=== PATIENT | male | born 2000 | race American Indian/Alaskan Native ===

== ENCOUNTER 2021-05-28 11:09 | Emergency (ER) | payer OTHER ==
[2021-05-28] MEDS ORDERED: LIDOCAINE (1%) 10 MG/1 ML VIAL 20 ML MDV INFILTRATI ONE (11:22)
[2021-05-28] MEDS ORDERED: oxyCODONE /ACETAMINOPHEN 5-325MG TAB PO ONE (11:35)
[2021-05-28] MEDS ORDERED: ONDANSETRON 4 MG ODT TAB PO ONE (11:36)
--- NOTE | 2021-05-28 12:08 | Emergency Department Report ---
ED General Adult HPI - General Chief complaint: Skin/Abscess/Foreign Body Stated complaint: BOIL Time Seen by Provider: 05/28/21 11:14 Source: patient Mode of arrival: Ambulatory Limitations: No Limitations - History of Present Illness Initial comments: 21-year-old -[place] male patient presents with complaints of right buttock abscess x1 week. He denies prior history of buttocks abscesses or pilonidal abscesses. He rates his current pain as a 10/10 in severity. He denies any fever/chills or sweats. No past medical history per patient. He has not tried any OTC medications for symptoms. Severity scale (0 -10): 10 - Related Data Previous Rx's Medication Instructions Recorded Last Taken Type Acetaminophen/Codeine [Tylenol 1 tab PO Q8H PRN #10 tab 05/28/21 Unknown Rx /Codeine # 3 tab] Clindamycin [Clindamycin CAP] 300 mg PO Q6H 10 Days #40 capsule 05/28/21 Unknown Rx Ibuprofen [Motrin] 800 mg PO Q8HR PRN #20 tablet 05/28/21 Unknown Rx Mupirocin [Bactroban 2% OINT] 1 applic TP TID 10 Days #1 tube 05/28/21 Unknown Rx Allergies Allergy/AdvReac Type Severity Reaction Status Date / Time No Known Allergies Allergy Unverified 05/28/21 11:10 ED Review of Systems ROS: Stated complaint: BOIL Other details as noted in HPI Constitutional: denies: chills, fever, malaise Gastrointestinal: denies: abdominal pain, nausea, vomiting Genitourinary: denies: other (No difficulty defecating per patient) Skin: lesions Neurological: denies: headache, numbness, paresthesias ED Past Medical Hx - Past Medical History Previous Medical History?: Yes Hx Asthma: Yes - Surgical History Past Surgical History?: No - Medications Home Medications: Home Medications Medication Instructions Recorded Confirmed Last Taken Type Acetaminophen/Codeine [Tylenol 1 tab PO Q8H PRN #10 tab 05/28/21 Unknown Rx /Codeine # 3 tab] Clindamycin [Clindamycin CAP] 300 mg PO Q6H 10 Days #40 capsule 05/28/21 Unknown Rx Ibuprofen [Motrin] 800 mg PO Q8HR PRN #20 tablet 05/28/21 Unknown Rx Mupirocin [Bactroban 2% OINT] 1 applic TP TID 10 Days #1 tube 05/28/21 Unknown Rx ED Physical Exam - General Limitations: No Limitations General appearance: alert, in no apparent distress - Head Head exam: Present: atraumatic, normocephalic - Eye Eye exam: Present: normal appearance. Absent: scleral icterus - Respiratory Respiratory exam: Absent: respiratory distress - Cardiovascular Cardiovascular Exam: Present: regular rate - Rectal Rectal exam: Present: other (Right lower inner buttock abscess noted (nonperianal) with surrounding induration and central fluctuance no significant tenderness to palpation noted) - Neurological Exam Neurological exam: Present: alert, oriented X3 - Psychiatric Psychiatric exam: Present: normal affect, normal mood - Skin Skin exam: Present: warm, dry, intact, erythema (Erythema noted about the right buttock abscess with mild cellulitic changes noted) ED Course Vital Signs 05/28/21 05/28/21 05/28/21 11:11 11:57 13:28 Temperature 99.6 F Pulse Rate 105 H 99 H Respiratory 18 17 Rate Blood Pressure 119/71 Blood Pressure 125/69 [Right] O2 Sat by Pulse 97 Oximetry - I & D Buttocks Type of Procedure: Simple Site: Right buttock Blade Size: 11 I & D Procedure: betadine prep, sterile drapes applied, sterile dressing applied Progress: 4 cc of lidocaine 1% used anesthetize area. Moderate purulent drainage obtained from wound. Wound irrigated with 100 Betadine and saline mixture. Sterile dressing applied. Patient tolerated procedure well without any immediate complications. ED Medical Decision Making - Medical Decision Making 21-year-old -[place] male patient presents with complaints of right buttock abscess x1 week. He denies prior history of buttocks abscesses or pilonidal abscesses. He rates his current pain as a 10/10 in severity. He denies any fever/chills or sweats. No past medical history per patient. He has not tried any OTC medications for symptoms. Incision and drainage performed. Patient tolerated procedure well without any immediate complications. Will discharge home on clindamycin and mupirocin. He is to follow-up with primary care in 3 to 5 days. He is well-appearing, his vitals are normal, he is stable for discharge home. Wound care and strict return precautions were discussed in detail patient verbalizes understanding. Critical care attestation.: If time is entered above; I have spent that time in minutes in the direct care of this critically ill patient, excluding procedure time. ED Disposition Clinical Impression: Abscess of buttock, right Disposition: 01 HOME / SELF CARE / HOMELESS Is pt being admited?: No Condition: Stable Instructions: Skin Abscess, Incision and Drainage, Care After Prescriptions: Mupirocin [Bactroban 2% OINT] 1 applic TP TID 10 Days #1 tube Clindamycin [Clindamycin CAP] 300 mg PO Q6H 10 Days #40 capsule Ibuprofen [Motrin] 800 mg PO Q8HR PRN #20 tablet PRN Reason: Pain, Moderate (4-6) Acetaminophen/Codeine [Tylenol /Codeine # 3 tab] 1 tab PO Q8H PRN #10 tab PRN Reason: Pain , Severe (7-10) Referrals: [facility] [Provider Group] - 3-5 Days Forms: Work/School Release Form(ED)
[2021-05-28 13:47] VITALS: BP 125/69
== END 2021-05-28 13:28 | disposition home or self-care (01) ==
LOC: ED 11:09
DX: L02.31 Cutaneous abscess of buttock (principal); Z79.899 Other long term (current) drug therapy
CPT/HCPCS: 10060; 99282; J3490; Q0162